=== PATIENT | male | born 1980 | race Caucasian/White ===

== ENCOUNTER 2020-01-05 15:43 | Emergency (ER) | payer BC ==
[~2020-01-05] VITALS: Ht 180.3 cm; Wt 91.0 kg
[2020-01-05] MEDS ORDERED: KETOROLAC 30MG/ML VIAL IM ONE (18:00)
[2020-01-05] MEDS ORDERED: HYDROCODONE/ACETAMINOPHEN 5/325MG TABLET PO ONE (19:15)
[2020-01-05 19:39] VITALS: BP 121/70
== END 2020-01-05 20:26 | disposition home or self-care (01) ==
LOC: ER 15:43
DX: M54.5 Low back pain (principal); Z98.1 Arthrodesis status
CPT/HCPCS: 96372; 99283; J1885